=== PATIENT | female | born 2005 | race Caucasian/White ===

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

== ENCOUNTER 2024-10-16 00:31 | Outpatient (CLI) | payer BC, SELFPAY ==
[2024-10-16 12:18] LABS: HCT 41.9 % (36.0-46.0); HGB 13.8 g/dL (11.2-15.7); MCH 29.2 pg (27.0-33.0); MCHC 32.9 % (32.0-36.0); MCV 89 fL (80-95); MPV 9.7 fL (8.0-11.0); Platelet Count 259 10^3/uL (130-400); RBC 4.73 10^6/uL (3.93-5.22); RDW-SD 39.4 fL; WBC 4.56 10^3/uL (4.4-10.8)
[2024-10-16 12:47] LABS: Anion Gap 9.2 mmol/L (3-11); BUN 10 mg/dL (7-18); CO2 27.8 mmol/L (21.0-32.0); CREATININE 0.8 mg/dL (0.55-1.02); Calcium 9.7 mg/dL (8.5-10.1); Calculated LDL 93 mg/dL (<100); Chloride 105 mmol/L (98-107); Cholesterol 159 mg/dL (<200); Estimated GFR 107.44 (mL/min/1.73m2); Glucose 89 mg/dL (74-106); HDL Cholesterol 55 mg/dL (>or=50); Potassium 4.1 mmol/L (3.5-5.1); Sodium 142 mmol/L (136-145); TSH (W/Ref FT4) 2.97 uIU/mL (0.36-3.74); Triglyceride 57 mg/dL (<150)
== END 2024-10-16 00:32 | disposition home or self-care (01) ==
LOC: LOS 00:31
PROVIDERS: PCP Nurse Practitioner Family; Visit Provider Nurse Practitioner Family
DX: Z00.00 Encounter for general adult medical examination without abnormal findings (principal)
CPT/HCPCS: 36415; 80048; 80061; 85027; 84443

== ENCOUNTER 2024-11-16 13:22 | Outpatient (REF) | payer BC, SELFPAY ==
--- NOTE | 2024-11-16 08:50 | PAPFT_PTH ---
PATIENT: Tera Garza LOC: [facility] U#:[id number] AGE/SX: 19/F ROOM: RE11/16/[address]: Teresa Rosa MD : 2005 BED: DIS: 11/16/2024 SPEC #: [id number] RECD: 11/16/24 18:11 STATUS: KANCHAN REQ #: [id number] DEBBIE: 11/16/24 08:[address]: Teresa Rosa DEPT: [facility] Cytology RECD BY: Izzy Rodriguez ENTERED: 11/16/24 18:12 SP TYPE: PAPFT OTHR DR: AMINA Fernandes Tissues: 1 - CX/ENDOCX FOR PAP SMEARS Procedures: PAP THIN PREP/[facility] Screening Comments: [id number]
== END 2024-11-16 13:23 | disposition home or self-care (01) ==
LOC: LBN 13:22
PROVIDERS: PCP Nurse Practitioner Family; Visit Provider Obstetrics & Gynecology
DX: Z12.4 Encounter for screening for malignant neoplasm of cervix (principal)
CPT/HCPCS: 88142